=== PATIENT | male | born 1950 | race Caucasian/White ===

== ENCOUNTER 2016-08-07 07:03 | Day surgery (SDC) | payer OTHER, MEDICARE ==
[2016-08-07] MEDS ORDERED: NS 500 ML IV 500 ML IV ONE (07:26)
[2016-08-07] MEDS ORDERED: TETRACAINE 0.5% OPHTH 1 DOSE AFFEYE ONE ×4 (07:30→09:35)
[2016-08-07] MEDS ORDERED: VIGAMOX 0.5% OPHTH 1 DOSE AFFEYE ONE ×6 (07:35→09:50)
[2016-08-07] MEDS ORDERED: PROLENSA OPHTH 1 DOSE AFFEYE ONE (07:46)
[2016-08-07] MEDS ORDERED: ALPHAGAN-P OPHTH 1 DOSE AFFEYE ONE (07:47)
[2016-08-07] MEDS ORDERED: AK-DILATE 2.5% OPHTH 1 DOSE OP ONE ×3 (07:48→07:51)
[2016-08-07] MEDS ORDERED: CYCLOGYL 1% OPHTH 1 DOSE OP ONE ×3 (07:48→07:50)
[2016-08-07] MEDS ORDERED: MYDRIACIL OPHTH 1 DOSE AFFEYE ONE ×3 (07:48→07:50)
[2016-08-07] MEDS ORDERED: XYLOCAINE-MPF 1% IJ ONE ×2 (08:58→09:35)
[2016-08-07] MEDS ORDERED: BETADINE OPHTH SOLN 5% EACHEYE ONE ×2 (08:58→09:15)
[2016-08-07] MEDS ORDERED: DUOVISC IO ONE ×2 (08:58→09:35)
[2016-08-07] MEDS ORDERED: ADRENALINE CHL INJ IJ ONE ×2 (08:58→09:35)
[2016-08-07] MEDS ORDERED: BSS OPHTH (PLAIN) 500 ML with VANCOMYCIN HCL 500 MG VIAL 25 MG, ADRENALINE CHL INJ 1 MG IR ONE ×6 (08:59)
[2016-08-07 11:01] VITALS: BP 144/80
== END 2016-08-07 10:15 | disposition home or self-care (01) ==
LOC: SURG1 07:03
PROVIDERS: ATTEND Ophthalmology
PROC: 08RJ3JZ Replacement of Right Lens with Synthetic Substitute, Percutaneous Approach (ICD-10-PCS; principal; 2016-08-07 09:00)
PROC: 08DJ3ZZ Extraction of Right Lens, Percutaneous Approach (ICD-10-PCS; principal; 2016-08-07 09:00)
DX: H25.11 Age-related nuclear cataract, right eye (principal); H25.011 Cortical age-related cataract, right eye; H25.041 Posterior subcapsular polar age-related cataract, right eye
CPT/HCPCS: A4217; J0170; J3370